=== PATIENT | female | born 1960 | race Two or more races ===

== ENCOUNTER 2019-10-24 06:07 | Day surgery (SDC) | payer OTHER ==
--- NOTE | 2019-10-23 08:54 | Pre-Procedure Note/Attestation ---
Pre-Procedure Note/Attestation Complete Prior to Procedure Planned Procedure: right Procedure Narrative: cataract extraction with implant right eye Indications for Procedure Pre-Operative Diagnosis: cataract right eye Attestation I attest that I discussed the nature of the procedure; its benefits; risks and complications; and alternatives (and the risks and benefits of such alternatives ), prior to the procedure, with the patient (or the patient's legal senior human resources representative). I attest that, if there was a reasonable possibility of needing a blood transfusion, the patient (or the patient's legal senior human resources representative) was given the [facility] standardized written summary, pursuant to the Iggy O'Donnell Blood Safety Act ([place] Health and Safety Code # 1645, as amended). I attest that I re-evaluated the patient just prior to the surgery and that there has been no change in the patient's H&P, except as documented below: John Wang MD Oct 23, 2019 08:54
[~2019-10-24] VITALS: Ht 162.6 cm; Wt 69.9 kg
[2019-10-24] VITALS (8 sets, daily range): BP systolic 104–118; BP diastolic 58–71
[~2019-10-24 06:07] MED LIST: ESTROVEN 155 M155 MG PO; LEVOXYL100 MCG ORAL; LISINOPRIL20 MG ORAL
[2019-10-24] MEDS ORDERED: Diclofenac Sod 0.1% Op Soln ONE (06:13)
[2019-10-24] MEDS ORDERED: Tobradex Opth Susp 2.5ml ONE (06:13)
[2019-10-24] MEDS ORDERED: Vigamox Opth Soln 3ml ONE (06:13)
[2019-10-24] MEDS ORDERED: Tropicamide 1% Opth 15ml Soln ONE (06:13)
[2019-10-24] MEDS ORDERED: Akten 3.5% 1ml Btl ONE (06:13)
[2019-10-24] MEDS ORDERED: Phenylephrine 2.5% Op 2ml Soln ONE (06:13)
[2019-10-24] MEDS: Vigamox Opth Soln 3ml RIGHT EYE SCH ×3 (06:32→06:55)
[2019-10-24] MEDS: Akten 3.5% 1ml Btl RIGHT EYE SCH ×3 (06:32→06:55)
[2019-10-24] MEDS: Diclofenac Sod 0.1% Op Soln RIGHT EYE SCH ×3 (06:32→06:55)
[2019-10-24] MEDS: Phenylephrine 2.5% Op 2ml Soln RIGHT EYE SCH ×3 (06:32→06:54)
[2019-10-24] MEDS: Tropicamide 1% Opth 15ml Soln RIGHT EYE SCH ×3 (06:32→06:54)
[2019-10-24] MEDS: Tobradex Opth Susp 2.5ml RIGHT EYE SCH ×3 (06:33→06:55)
[2019-10-24] MEDS ORDERED: acetaZOLAMIDE 500mg Inj ONE (07:09)
[2019-10-24] MEDS ORDERED: EPINEPHrine 1mg/1ml Amp ONE ×2 (07:09→07:43)
[2019-10-24] MEDS ORDERED: Carbachol 0.01% Op Soln 1.5ml vial ONE (07:09)
[2019-10-24] MEDS ORDERED: Lidocaine 1% MPF 10mg/ml 5ml ONE (07:09)
[2019-10-24] MEDS ORDERED: BSS 15ml BTL ONE ×2 (07:10→07:43)
[2019-10-24] MEDS ORDERED: BSS 500ml btl ONE (07:10)
[2019-10-24] MEDS ORDERED: Povidone-Iodine 5% opth solution ONE (07:10)
[2019-10-24] MEDS ORDERED: Sodium Hyaluronate 10 mg/ml 0.85ml ONE (07:10)
[2019-10-24] MEDS ORDERED: fentaNYL 100 mcg/2 mL IV PRN (07:30)
[2019-10-24] MEDS ORDERED: NS Irrig 1000ml ONE (07:30)
[2019-10-24] MEDS ORDERED: LR 1000ml ONE (07:30)
[2019-10-24] MEDS ORDERED: Sterile Water Irrig 1000ml IRRIG ONE (07:30)
[2019-10-24] MEDS ORDERED: Midazolam 2mg/2ml Inj ONE (07:32)
[2019-10-24] MEDS ORDERED: fentaNYL 100 mcg/2 mL IV ONE (07:32)
[2019-10-24] MEDS ORDERED: Lidocaine 4% Amp 5ml ONE (07:43)
--- NOTE | 2019-10-24 08:09 | Immediate Post-Op Evaluation ---
Immediate Post-Op Evalulation Immediate Post-Op Evalulation Procedure: cataract extraction [place] eye Date of Evaluation: Oct 24, 2019 Time of Evaluation: 08:09 IV Fluids: 300 Blood Pressure Systolic: 118 Blood Pressure Diastolic: 64 Pulse Rate: 66 Respiratory Rate: 14 O2 Sat by Pulse Oximetry: 98 Temperature (Fahrenheit): 97.6 Nausea: No Vomiting: No Complications none Patient Status: awake, reacts, patent Hydration Status: adequate Drug: none FelicianoriHenrietta powell CRNA Oct 24, 2019 08:09
--- NOTE | 2019-10-24 08:09 | Anethesia Preoperative Eval ---
Anesthesia Pre-op PMH/ROS General Date of Evaluation: Oct 24, 2019 Time of Evaluation: 07:25 Anesthesiologist: ana ASA Score: ASA 2 Mallampati Score Class I : Soft palate, uvula, fauces, pillars visible Class II: Soft palate, uvula, fauces visible Class III: Soft palate, base of uvula visible Class IV: Only hard plate visible Mallampati Classification: Class II Surgeon: mary Diagnosis: cataract Surgical Procedure: cataract extraction Anesthesia History: none Family History: no anesthesia problems Allergies: Coded Allergies: No Known Allergies (Unverified , 10/22/19) Medications: see eMAR Patient NPO?: Yes NPO Date: Oct 24, 2019 NPO Time: 00:01 Past Medical History Cardiovascular: Reports: HTN Pulmonary: Denies: asthma, COPD, FOREIGN, other Gastrointestinal/Genitourinary: Denies: GERD, CRI, ESRD, other Neurologic/Psychiatric: Denies: dementia, CVA, depression/anxiety, TIA, other Endocrine: Reports: hypothyroidism; Denies: DM, steroids, other HEENT: Reports: cataract (R) Hematology/Immune: Denies: anemia, DVT, bleeding disorder, other PSxH Narrative: gallbladder Anesthesia Pre-op Phys. Exam Physician Exam Last Vital Signs Date Time Temp Pulse Resp B/P (MAP) Pulse Ox O2 Delivery O2 Flow Rate FiO2 10/24/19 06:42 Room Air 10/24/19 06:42 97.4 67 18 113/68 100 Constitutional: NAD Neurologic: CN 2-12 intact Cardiovascular: RRR Respiratory: CTA Gastrointestinal: S/NT/ND Airway Exam Mallampati Classification 2 Mallampati Score: Class II MO: full ROM: full Dentures: no upper, no lower Anesthesia Pre-op A/P Studies Pre-op Studies: EKG - sr Risk Assessment & Plan Plan: mac Status Change Before Surgery: No Pre-Antibiotics Drug: none Henrietta Javier CRNA Oct 24, 2019 08:09
--- NOTE | 2019-10-24 08:38 | Brief Operative Note ---
Immediate Post Operative Note Operative Note Pre-op Diagnosis: cataract right eye Procedure: phacoemulsification of cataract with implant right eye Post-op Diagnosis: same as pre-op Surgeon: john hernandez md Video Games Storywriter: none Anesthesiologist: yulisa padilla crna Anesthesia: MAC Specimen: none Complications: none Condition: stable Fluids: none Estimated Blood Loss: none Drains: none Implant(s) used?: Yes John Hernandez MD Oct 24, 2019 08:37
--- NOTE | 2019-10-24 10:37 | 48 Hour Post Anesthesia Eval ---
Post Anesthesia Evaluation Procedure: cataract extraction [place] eye Date of Evaluation: Oct 24, 2019 Time of Evaluation: 10:37 Blood Pressure Systolic: 106 0: 58 Pulse Rate: 51 Respiratory Rate: 14 O2 Sat by Pulse Oximetry: 98 Airway: patent Nausea: No Vomiting: No Hydration Status: adequate Cardiopulmonary Status: stable Mental Status/LOC: patient returned to baseline Post-Anesthesia Complications: none Follow-up care needed: N/A Henrietta Javier CRNA Oct 24, 2019 10:37
--- NOTE | 2019-10-24 16:44 | Operative Note - Dictated ---
DATE OF OPERATION: 10/24/2019 PREOPERATIVE DIAGNOSIS: Combined form of cataract right eye. POSTOPERATIVE DIAGNOSIS: Combined form of cataract right eye. PROCEDURE: Phacoemulsification cataract right eye with placement of posterior chamber intraocular lens. SURGEON: John Wang MD SITE MEDICAL DIRECTOR: None. ANESTHESIA: MAC/topical. ANESTHESIOLOGIST: Henrietta Javier CRNA. INDICATION FOR PROCEDURE: Poor vision, right eye. DESCRIPTION OF FINDINGS: Dense combined from of cataract right eye. DESCRIPTION OF PROCEDURE: Patient received a topical anesthetic block consisting of 3.5% Akten eye drops. The eye was then prepped and draped in the usual manner. A lid speculum was placed. An operating Zeiss microscope was positioned. A 3.2 mm corneal marker was used at the temporal position. The leydi blade was used to make a temporal corneal groove. A SuperSharp blade made a stab incision at the 12 o'clock position. A 0.1 mL of 1% non-preservative intracameral lidocaine was injected. Healon was instilled into the anterior chamber and a 2.5/2.8 mm trapezoidal leydi blade was used to complete the temporal corneal wound. A cystotome was used to create an anterior capsular flap. Utrata forceps were used to complete the capsulorrhexis. BSS on a cannula was used to hydrodissect the nucleus. The nucleus was phacoemulsified in a phaco-fracture technique. Remaining cortical material was removed with the I/A and the posterior capsule was polished with the I/A on Cap vac. Healon was instilled in a capsular bag and anterior chamber and an Rondon foldable one-piece posterior intraocular lens, model ZCB00, power 26.0 diopter, serial #[id number] was placed into the injector. The lens was placed in capsular bag. The I/A tip was used to remove the Healon and position the lens. The wound edge was hydrated with BSS and a blunt-tipped cannula. The wound was checked and found to be watertight. The lid speculum was removed and a drop of TobraDex and Vigamox was placed. A clear plastic shield was taped over the eye. The patient tolerated well and left the operating room in good condition. John Wang M.D. ([facility]) DR: PRAKASH JOB#: [id number] CC: STUART
== END 2019-10-24 09:00 | disposition home or self-care (01) ==
LOC: SUR 06:07
DX: H25.811 Combined forms of age-related cataract, right eye (principal); I10 Essential (primary) hypertension; E03.9 Hypothyroidism, unspecified
CPT/HCPCS: 66984; 94003; J0171; J1100; J2250; J3010; J7120; V2632; 94150

== ENCOUNTER 2019-11-28 05:27 | Day surgery (SDC) | payer OTHER ==
--- NOTE | 2019-11-27 13:37 | Pre-Procedure Note/Attestation ---
Pre-Procedure Note/Attestation Complete Prior to Procedure Planned Procedure: left Procedure Narrative: cataract extraction with implant left eye Indications for Procedure Pre-Operative Diagnosis: cataract left eye Attestation I attest that I discussed the nature of the procedure; its benefits; risks and complications; and alternatives (and the risks and benefits of such alternatives ), prior to the procedure, with the patient (or the patient's legal compliance representative dealer). I attest that, if there was a reasonable possibility of needing a blood transfusion, the patient (or the patient's legal compliance representative dealer) was given the [facility] standardized written summary, pursuant to the Iggy Winnie Blood Safety Act ([place] Health and Safety Code # 1645, as amended). I attest that I re-evaluated the patient just prior to the surgery and that there has been no change in the patient's H&P, except as documented below: John Wang MD Nov 27, 2019 13:37
[~2019-11-28] VITALS: Ht 162.6 cm; Wt 69.9 kg
[2019-11-28] VITALS (9 sets, daily range): BP systolic 110–122; BP diastolic 55–77
[~2019-11-28 05:27] MED LIST changes: +ATORVASTATIN CA20 MG ORAL
[2019-11-28] MEDS ORDERED: Vigamox Opth Soln 3ml ONE (05:35)
[2019-11-28] MEDS ORDERED: Tobradex Opth Susp 2.5ml ONE (05:35)
[2019-11-28] MEDS ORDERED: Akten 3.5% 1ml Btl ONE (05:35)
[2019-11-28] MEDS ORDERED: Tropicamide 1% Opth 15ml Soln ONE (05:35)
[2019-11-28] MEDS ORDERED: Diclofenac Sod 0.1% Op Soln ONE (05:35)
[2019-11-28] MEDS ORDERED: Phenylephrine 2.5% Op 2ml Soln ONE (05:35)
[2019-11-28] MEDS: Phenylephrine 2.5% Op 2ml Soln LEFT EYE SCH ×3 (05:55→06:13)
[2019-11-28] MEDS: Diclofenac Sod 0.1% Op Soln LEFT EYE SCH ×3 (05:55→06:13)
[2019-11-28] MEDS: Tobradex Opth Susp 2.5ml LEFT EYE SCH ×3 (05:55→06:13)
[2019-11-28] MEDS: Tropicamide 1% Opth 15ml Soln LEFT EYE SCH ×3 (05:55→06:13)
[2019-11-28] MEDS: Vigamox Opth Soln 3ml LEFT EYE SCH ×3 (05:55→06:13)
[2019-11-28] MEDS: Akten 3.5% 1ml Btl LEFT EYE SCH ×3 (05:55→06:13)
--- NOTE | 2019-11-28 05:58 | NUR ---
PER PATIENT MOXIFLOXACIN EYE DROPS WAS USED BEFORE AND NO ADVERSE REACTION
[2019-11-28] MEDS ORDERED: EPINEPHrine 1mg/1ml Amp ONE (07:27)
[2019-11-28] MEDS ORDERED: BSS 500ml btl ONE (07:28)
[2019-11-28] MEDS ORDERED: Carbachol 0.01% Op Soln 1.5ml vial ONE (07:28)
[2019-11-28] MEDS ORDERED: acetaZOLAMIDE 500mg Inj ONE (07:28)
[2019-11-28] MEDS ORDERED: BSS 15ml BTL ONE (07:28)
[2019-11-28] MEDS ORDERED: Lidocaine 1% MPF 10mg/ml 5ml ONE ×2 (07:28→07:39)
[2019-11-28] MEDS ORDERED: Povidone-Iodine 5% opth solution ONE (07:29)
[2019-11-28] MEDS ORDERED: Sodium Hyaluronate 10 mg/ml 0.85ml ONE (07:29)
[2019-11-28] MEDS ORDERED: Sterile Water Irrig 1000ml IRRIG ONE (07:30)
[2019-11-28] MEDS ORDERED: LR 1000ml ONE (07:30)
[2019-11-28] MEDS ORDERED: NS Irrig 1000ml ONE (07:30)
[2019-11-28] MEDS ORDERED: Sodium Chloride 10ml vial INJ ONE (07:39)
[2019-11-28] MEDS ORDERED: Midazolam 2mg/2ml Inj ONE (07:39)
[2019-11-28] MEDS ORDERED: LR 1000ml 1,000 ML IVLG SCH (07:49)
--- NOTE | 2019-11-28 07:54 | Immediate Post-Op Evaluation ---
Immediate Post-Op Evalulation Immediate Post-Op Evalulation Procedure: Cat ext IOL OS Date of Evaluation: Nov 28, 2019 Time of Evaluation: 08:27 IV Fluids: 700 Blood Products: 0 Estimated Blood Loss: 1 Urinary Output: 0 Blood Pressure Systolic: 119 Blood Pressure Diastolic: 72 Pulse Rate: 61 Respiratory Rate: 16 O2 Sat by Pulse Oximetry: 99 Temperature (Fahrenheit): 97 Pain Score (1-10): 1 Nausea: No Vomiting: No Complications 0 Patient Status: awake, reacts, patent, none Hydration Status: adequate Marcos Toney MD Nov 28, 2019 07:54
--- NOTE | 2019-11-28 07:54 | Anethesia Preoperative Eval ---
Anesthesia Pre-op PMH/ROS General Date of Evaluation: Nov 28, 2019 Time of Evaluation: 07:26 Anesthesiologist: Feng ASA Score: ASA 3 Mallampati Score Class I : Soft palate, uvula, fauces, pillars visible Class II: Soft palate, uvula, fauces visible Class III: Soft palate, base of uvula visible Class IV: Only hard plate visible Mallampati Classification: Class II Surgeon: Felipe Diagnosis: Cataract OD Surgical Procedure: Cat ext IOL OD Family History: no anesthesia problems Allergies: Coded Allergies: CIPROFLOXACIN (Verified Allergy, Severe, PALPITATIONS HEADACHE, 11/28/19) METRONIDAZOLE (Verified Allergy, Severe, PALPITATIONS, HEADACHE, 11/28/19) Medications: see eMAR Patient NPO?: Yes Past Medical History Cardiovascular: Reports: HTN Endocrine: Reports: hypothyroidism HEENT: Reports: cataract (L), cataract (R) PSxH Narrative: T&A, Appendectomy, Cholecystectomy Anesthesia Pre-op Phys. Exam Physician Exam Last Vital Signs Date Time Temp Pulse Resp B/P (MAP) Pulse Ox O2 Delivery O2 Flow Rate FiO2 11/28/19 06:08 Room Air 11/28/19 06:03 97.1 70 18 112/70 99 Constitutional: NAD Neurologic: CN 2-12 intact Cardiovascular: RRR Respiratory: CTA Gastrointestinal: S/NT/ND Airway Exam Mallampati Score: Class III MO: full ROM: limited Teeth: missing, intact Anesthesia Pre-op A/P Risk Assessment & Plan Assessment: ASA 3 Plan: TIVA Status Change Before Surgery: No Marcos Toney MD Nov 28, 2019 07:54
--- NOTE | 2019-11-28 07:55 | 48 Hour Post Anesthesia Eval ---
Post Anesthesia Evaluation Procedure: Cat ext IOL OS Date of Evaluation: Nov 28, 2019 Time of Evaluation: 10:34 Blood Pressure Systolic: 115 0: 68 Pulse Rate: 62 Respiratory Rate: 18 Temperature (Fahrenheit): 97.6 O2 Sat by Pulse Oximetry: 99 Airway: patent Nausea: No Vomiting: No Pain Intensity: 1 Hydration Status: adequate Cardiopulmonary Status: Stable Mental Status/LOC: patient returned to baseline Follow-up Care/Observations: 0 Post-Anesthesia Complications: 0 Follow-up care needed: ready to discharge Marcos Toney MD Nov 28, 2019 07:55
[2019-11-28] MEDS ORDERED: LORazepam Inj 2mg/ml 1ml IV PRN (08:00)
[2019-11-28] MEDS ORDERED: Labetalol 5mg/ml 20ml vial IV PRN (08:00)
[2019-11-28] MEDS ORDERED: Midazolam 2mg/2ml Inj IVP PRN (08:00)
[2019-11-28] MEDS ORDERED: oxyCODONE HCL/Acetaminophen 5/325mg ORAL PRN (08:00)
[2019-11-28] MEDS ORDERED: Ketorolac 30mg Inj IV PRN ×2 (08:00)
[2019-11-28] MEDS ORDERED: Atropine Sulfate 0.4mg/ml inj IVP PRN (08:00)
[2019-11-28] MEDS ORDERED: DiphenhydrAMINE 50mg/ml Inj IVP PRN (08:00)
[2019-11-28] MEDS ORDERED: HYDROcodone/Acetamin 5/325 tab ORAL PRN (08:00)
[2019-11-28] MEDS ORDERED: Meperidine 25mg/0.5ml Inj (FOR RIGORS ONLY) IV PRN (08:00)
[2019-11-28] MEDS ORDERED: Metoclopramide 10mg/2ml Inj IVP PRN (08:00)
[2019-11-28] MEDS ORDERED: Hydromorphone 0.5mg/0.5ml inj IVP PRN (08:00)
[2019-11-28] MEDS ORDERED: HYDROcodone/Acetamin 7.5/325 tab ORAL PRN (08:00)
[2019-11-28] MEDS ORDERED: fentaNYL 100 mcg/2 mL IV PRN (08:00)
--- NOTE | 2019-11-28 08:14 | Brief Operative Note ---
Immediate Post Operative Note Operative Note Pre-op Diagnosis: cataract left eye Procedure: phacoemulsification of cataract with implant left eye Post-op Diagnosis: same as pre-op Surgeon: John Wang MD Land Examiner: none Anesthesiologist: Marcos Wetzel MD Specimen: none Complications: none Condition: stable Fluids: none Estimated Blood Loss: none Drains: none Implant(s) used?: Yes John Wang MD Nov 28, 2019 08:14
--- NOTE | 2019-11-28 10:45 | Operative Note - Dictated ---
DATE OF OPERATION: 11/28/2019 PREOPERATIVE DIAGNOSIS: Combined form of cataract, left eye. POSTOPERATIVE DIAGNOSIS: Combined form of cataract, left eye. PROCEDURE: Phacoemulsification cataract left eye with placement of posterior intraocular lens. SURGEON: John Wang MD. MAGISTRATE ASSISTANT: None. ANESTHESIA: MAC/topical. ANESTHESIOLOGIST: Marcos Toney MD. INDICATION FOR PROCEDURE: Poor vision, left eye. DESCRIPTION OF FINDINGS: Combined from of cataract, left eye. DESCRIPTION OF PROCEDURE: The patient received a topical anesthetic block consisting of 3.5% Akten eye drops. The eye was then prepped and draped in usual manner. A lid speculum was placed and an operating Zeiss microscope was positioned. The temporal corneal groove was made with a leydi blade. A SuperSharp blade made a stab incision at the 6 o'clock position. A 0.1 mL of 1% non-preservative intracameral lidocaine was injected. Healon was instilled into the anterior chamber. A 2.5/2.9 mm trapezoidal leydi blade was used to complete the temporal corneal wound. A cystotome was used to create an anterior capsular flap. Utrata forceps were used to complete the capsulorrhexis. BSS on a cannula was used to hydrodissect the nucleus. The lens nucleus was phacoemulsified in a phaco-fracture technique. Remaining cortical material was removed with the I/A and the posterior capsule was polished with the I/A on Cap vac. Healon was instilled in the capsular bag and anterior chamber and Clifford-Clifford preloaded posterior intraocular lens, model PCB00, power 25.5 diopter, serial #[id number] was placed into the capsular bag. The I/A tip was used to position the lens and remove the Healon. The wound edge was hydrated with BSS and a blunt-tipped cannula. The wound was checked and found to be watertight. The lid speculum was removed. A drop of TobraDex and Vigamox was placed. A clear plastic shield was taped over the eye. The patient tolerated the procedure well and left the operating room in good condition. John Wang M.D. ([facility] [place]) DR: SANDY JOB#: [id number] CC:
== END 2019-11-28 09:20 | disposition home or self-care (01) ==
LOC: SUR 05:27
DX: H25.812 Combined forms of age-related cataract, left eye (principal); Z88.8 Allergy status to other drugs, medicaments and biological substances; I10 Essential (primary) hypertension; E03.9 Hypothyroidism, unspecified; Z90.89 Acquired absence of other organs; Z90.49 Acquired absence of other specified parts of digestive tract
CPT/HCPCS: 66984; 94003; J0171; J1100; J2250; J2704; J7120; U0002; V2632; 94150